=== PATIENT | female | born 1955 | race Caucasian/White ===

== ENCOUNTER 2018-05-22 09:10 | Emergency (ER) | payer OTHER ==
[2018-05-22] MEDS ORDERED: ONDANSETRON HCL IV 4 MG/2 ML VIAL IVP ONE (09:19)
[2018-05-22] MEDS ORDERED: ACETAMINOPHEN 1,000 MG/100 ML BTL IVPB ONE (09:19)
[2018-05-22] MEDS ORDERED: 0.9 % SODIUM CHLORIDE 1000ML 1,000 ML IV ONE (09:19)
--- NOTE | 2018-05-22 09:23 | Emergency Department Record ---
History of Present Illness - General Chief Complaint: Back Pain/Injury Stated Complaint: R BACK AND FRONT PAIN Time Seen by Provider: 05/22/18 09:18 Source: Patient, Family Mode of Arrival: Ambulatory Limitations: No limitations - History of Present Illness Initial Comments: 62 yo female presents with right flank pain and discomfort with urination. The onset was yesterday. She has urinary frequency with small amounts. No fever but she felt chilled. She denies any blood in the urine or stools. She took Azo without improvement. She has had a prior remote history of renal stones. No diarrhea. No rash. The pain started in the back and radiates to the right lower abdomen. She reports she has had an appendectomy and hysterectomy. MD Complaint: Back pain -: Hour(s) Place: Home Radiation: Abdomen Severity: Severe Quality: Aching, Sharp Consistency: Constant Improves With: None Worsens With: None Context: Other Associated Symptoms: Abdominal pain, Difficulty urinating, Loss of appetite, Nausea/vomiting - Related Data Home Medications Medication Instructions Recorded Confirmed Last Taken Hydrochlorothiazide [Hctz] 25 mg PO DAILY 05/22/18 05/22/18 Unknown Meloxicam [Mobic] 15 mg PO DAILY 05/22/18 05/22/18 Unknown Metformin HCl 1,000 mg PO BID 05/22/18 05/22/18 Unknown Semaglutide [Ozempic] 1 mg SQ WEEKLY 05/22/18 05/22/18 Unknown Valsartan/Hydrochlorothiazide 1 each PO DAILY 05/22/18 05/22/18 Unknown [Diovan Hct 320-12.5 mg Tab] Venlafaxine HCl [Venlafaxine HCl 150 mg PO DAILY 05/22/18 05/22/18 Unknown ER] Previous Rx's Medication Instructions Recorded Cephalexin [Keflex] 500 mg PO TID #21 cap 05/22/18 Hydrocodone/APAP 5/325Mg [[place] 1 each PO Q6H #10 tab 05/22/18 5Mg/325Mg] Ondansetron [Zofran Odt] 4 mg PO Q8H #20 tab.rapdis 05/22/18 Allergies Allergy/AdvReac Type Severity Reaction Status Date / Time Penicillins Allergy HIVES Verified 05/22/18 09:22 Review of Systems Constitutional: Reports: Chills. Denies: Fever, Malaise, Weakness Eyes: Denies: Eye discharge, Eye pain, Vision change ENT: Denies: Congestion, Throat pain Respiratory: Denies: Cough, Dyspnea, Hemoptysis Cardiovascular: Denies: Chest pain, Palpitations, Syncope Endocrine: Denies: Fatigue, Polydipsia, Polyuria Gastrointestinal: Reports: Abdominal pain, Nausea, Vomiting. Denies: Constipation, Diarrhea, Hematemesis, Hematochezia Genitourinary: Reports: Dysuria, Frequency, Urgency. Denies: Hematuria Musculoskeletal: Reports: Back pain. Denies: Arthralgia, Neck pain Skin: Denies: Bruising, Change in color, Rash Neurological: Denies: Headache, Numbness, Tremors, Weakness Psychiatric: Denies: Anxiety Hematological/Lymphatic: Denies: Blood Clots, Easy bleeding, Easy bruising, Swollen glands Physical Exam - General General Appearance: Alert, Oriented x3, Cooperative, No acute distress Limitations: No limitations - Head Head exam: Atraumatic, Normal inspection - Eye Eye exam: Normal appearance, PERRL. negative: Conjunctival injection, Scleral icterus - ENT ENT exam: Normal exam, Mucous membranes moist Ear exam: Normal external inspection Nasal Exam: Normal inspection Mouth exam: Normal external inspection - Neck Neck exam: Normal inspection. negative: Tenderness - Respiratory Respiratory exam: Normal lung sounds bilaterally. negative: Respiratory distress, Rhonchi, Stridor, Wheezes - Cardiovascular Cardiovascular Exam: Regular rate, Normal rhythm, Normal heart sounds - GI/Abdominal GI/Abdominal exam: Soft, Tenderness (tender right flank and RLQ, soft, non distended). negative: Distended, Guarding - Rectal Rectal exam: Deferred - exam: Deferred - Extremities Extremities exam: Normal inspection. negative: Tenderness - Back Back exam: Reports: CVA tenderness (R), Tenderness. Denies: CVA tenderness (L) - Neurological Neurological exam: Alert, Normal gait, Oriented X3 - Psychiatric Psychiatric exam: Normal affect, Normal mood. negative: Agitated, Anxious - Skin Skin exam: Dry, Intact, Normal color, Warm Course - Reevaluation(s) Reevaluation #1: 05/22/18 09:55 The CBC was reviewed. No acute changes. 05/22/18 10:04 The CMP was reviewed. Normal renal, hepatic, and pancreatic labs. 05/22/18 10:24 I discussed the UA with the labview programmer. She reviewed the urine under the microscope. She does not see bacteria and the WBC count is low. The Azo is interfering with the results. She is LE - and N +. A false positve N can occur with red or orange discoloration of the urine from the medication. A culture will be sent. The patient had moderate blood with 36-50 RBC's. 05/22/18 10:26 05/22/18 10:[address] scan was consistent with right distal 3mm UVJ stone with mild hydro. The results were discussed with the patient. I explained the UA is not likely infected but a culture will be sent. I will provide analgesics I recommend antibiotics until the culture returns 05/22/18 11:31 The patient is much improved Her pain is well controlled We discussed DC, close follow up and reasons to return She will be provided a referral to the urology clinic as well We discussed very unlikely UTI but she will be on antibiotics until the culture returns Medical Decision Making - Lab Data Result diagrams: 05/22/18 09:25 05/22/18 09:25 Disposition Disposition: Discharge Clinical Impression: Renal colic on right side Disposition: Home, Self-Care Condition: (1) Good Instructions: Renal Colic (ED) Additional Instructions: Call your doctor for the next available follow up appointment Return to the ER for a recheck if worse, any new concerns or questions Take the prescriptions provided as directed Review this ER visit and the tests performed with your family doctor Your urine culture will be available in 2-3 days Return if you have fever, vomiting, or uncontrolled pain. Prescriptions: Cephalexin [Keflex] 500 mg PO TID #21 cap Hydrocodone/APAP 5/325Mg [[place] 5Mg/325Mg] 1 each PO Q6H #10 tab Ondansetron [Zofran Odt] 4 mg PO Q8H #20 tab.rapdis Referrals: BRODIE HARTMANN M.D. [MEDICAL DOCTOR] - [facility] [Provider Group] Forms: Patient Portal Access Time of Disposition: 11:34 Quality - Quality Measures Quality Measures: N/A - Blood Pressure Screening Does Patient Have Any of the Following: Active Dx of HTN Blood Pressure Classification: Pre-Hypertensive BP Reading Systolic Measurement: 125 Diastolic Measurement: 85 Screening for High Blood Pressure: Patient Exclusion, Hx of HTN [G9744]
[2018-05-22 09:38] LABS: HEMATOCRIT 43.2 % (35.0-47.0); HEMOGLOBIN 14.5 gm/dl (11.6-16.0); MEAN CELL VOLUME 86.9 fl (81-97); MEAN CORPUSCULAR HEMOGLOBIN 29.2 pg (27-33); MEAN CORPUSCULAR HGB CONC 33.6 g/dl (32-36); MEAN PLATELET VOLUME 11.1 fl (7.4-10.4); PLATELET COUNT 304 K/uL (130-400); RED BLOOD COUNT 4.97 M/uL (3.80-5.40); RED CELL DISTRIBUTION WIDTH 12.9 % (11.5-14.5); WHITE BLOOD COUNT W/O DIFF 11.4 K/uL (4.2-12.2)
[2018-05-22 09:55] LABS: BLOOD UREA NITROGEN 14 mg/dL (8-23); CREATININE 0.6 mg/dL (0.5-0.9); EST GLOMERULAR FILTRATION RATE > 60 mL/min; TOTAL PROTEIN 8.1 g/dL (6.6-8.7)
[2018-05-22 09:56] LABS: LIPASE 39 U/L (13-60)
[2018-05-22 09:57] LABS: GLUCOSE,RANDOM 170 mg/dL (74-109)
[2018-05-22 10:00] LABS: ALB/GLOB RATIO 1.3 (1.1-1.8); ALBUMIN 4.5 g/dL (4.0-5.0); ALKALINE PHOSPHATASE 70 U/L (45-87); ALT/SGPT 24 U/L (<33); AST/SGOT 20 U/L (10.0-35.0)
[2018-05-22 10:02] LABS: URINE APPEARANCE CLEAR; URINE BILIRUBIN NEGATIVE (NEGATIVE); URINE BLOOD MODERATE (NEGATIVE); URINE COLOR ORANGE; URINE GLUCOSE (UA) NEGATIVE (NEGATIVE); URINE KETONE NEGATIVE (NEGATIVE); URINE LEUKOCYTE ESTERASE NEGATIVE (NEGATIVE); URINE NITRITE POSITIVE (NEGATIVE); URINE PROTEIN TRACE (NEGATIVE)
[2018-05-22] MEDS ORDERED: KETOROLAC 30 MG/ML VIAL IVP ONE ×2 (10:02→10:45)
[2018-05-22 10:13] LABS: URINE RBC 36 - 50 (NONE SEEN); URINE SQUAMOUS EPITHELIAL CELL 0 - 2 /hpf
[2018-05-22] MEDS ORDERED: MORPHINE SULFATE 10 MG/ML VIAL IVP ONE (10:45)
--- NOTE | 2018-05-24 08:18 | CT SCAN REPORT ---
EXAM: NONCONTRAST CT OF THE ABDOMEN AND PELVIS HISTORY: RIGHT FLANK PAIN, DYSURIA. TECHNIQUE: Noncontrast CT of the abdomen and pelvis was obtained. Comparison: Abdominal ultrasound 10/01/10. FINDINGS: The lung bases are clear. A small low attenuation lesion in the periphery of the lateral segment of the left hepatic lobe, likely corresponding to a previously seen simple cyst. The second previously identified hepatic cyst is not as well seen on today's examination, otherwise unremarkable appearance of the liver. Unremarkable noncontrast appearance of the gallbladder, spleen, adrenal glands, and pancreas. Moderate hydronephrosis. Punctate bilateral 1-2 mm intrarenal calculi. No left hydronephrosis. At the right ureteral vesicular junction there is a 3 mm calculus. Descending and sigmoid colon diverticulosis without evidence of acute diverticulitis. No focal colonic thickening or inflammatory changes. Normal appendix. The stomach and small bowel are nondilated. No free air or free fluid. Otherwise unremarkable appearance of the urinary bladder. Nonvisualization of the uterus compatible with history of hysterectomy. IMPRESSION: 1. THERE IS A 3 MM CALCULUS AT THE RIGHT URETERAL VESICULAR JUNCTION RESULTING IN MILD RIGHT HYDROURETERONEPHROSIS. 2. ADDITIONAL BILATERAL PUNCTATE NONOBSTRUCTING INTRARENAL CALCULI ARE PRESENT. JOB NUMBER: [id number] [facility]
== END 2018-05-22 11:47 | disposition home or self-care (01) ==
LOC: ER 09:10
DX: N13.2 Hydronephrosis with renal and ureteral calculous obstruction (principal); R10.31 Right lower quadrant pain; R30.0 Dysuria; R11.2 Nausea with vomiting, unspecified; E11.9 Type 2 diabetes mellitus without complications; I10 Essential (primary) hypertension; Z79.84 Long term (current) use of oral hypoglycemic drugs; Z87.442 Personal history of urinary calculi
CPT/HCPCS: 99284 ×2; 96376; 96365; 96375; 96361; 83690; 80053; 81001; 85027; 74176; J1885; J2405; J2270; J7030

== ENCOUNTER 2018-11-08 07:39 | Day surgery (SDC) | payer OTHER ==
[2018-11-08] MEDS ORDERED: LIDOCAINE 2% MDV (20MG/ML) 20ML VIAL IV ONE (07:40)
[2018-11-08] MEDS ORDERED: PROPOFOL 10 MG/ML VIAL IV ONE (07:40)
--- NOTE | 2018-11-09 08:30 | Operative Note ---
OPERATION: ESOPHAGOGASTRODUODENOSCOPY with multiple biopsies and Scott bougie dilation. INDICATION: Dysphagia. The patient reports history of dysphagia pointing to the upper chest and neck. She has both oropharyngeal dysphagia and esophageal dysphagia, she claims, after discussion. She states that this has been progressive over time. She denies any nasal reflux. She admits to problems only with solid foods. ANESTHESIA: Intravenous sedation was administered by the department of anesthesiology and included Diprivan titrated to effect. PROCEDURE: Following informed consent from this alert individual, including a discussion of the risks and benefits of the procedure and an opportunity for the patient to ask questions, the patient was in the left lateral decubitus position. The Olympus [id number] video endoscope was inserted into the posterior pharynx and esophagus without resistance. The posterior pharynx appeared to be normal. Vocal cords and arytenoid processes were normal. The esophagus was somewhat tortuous but the mucosa appeared to be normal with a normal luminal diameter. There were no ulcerations or erosions noted. The squamocolumnar junction was smooth, well defined, and marked a small 2 cm hiatal hernia. The hernia sac itself was free from mucosal changes. The subdiaphragmatic stomach was entered. The gastric fundus and pars media had a normal appearance with normal folds and distensibility. The antrum evaluated, however, demonstrated multiple small 6-7 mm ulcerations circumferentially. The pylorus was symmetrical and patent. The duodenal bulb, sweep, and descending duodenum were examined in a serial fashion and found to be normal. The endoscope was then drawn back into the body of the stomach. Retroflexion accomplished following air insufflation revealed a normal fundus and cardia. The endoscope was then straightened. Multiple biopsies were taken from the stomach to assess for Helicobacter pylori and check histology. A second set of biopsies was taken from throughout the esophagus to rule out the remote possibility of eosinophilic esophagitis. Again the mucosa appeared to be normal. The endoscope was then withdrawn. Dilation was accomplished then with a 48 Scott bougie with minimal resistance. The patient tolerated the procedure well and was returned to the recovery area in stable condition. IMPRESSION: 1. Multiple 6-7 mm gastric antral ulcerations perhaps related to anti- inflammatory medications. Biopsies from the stomach were taken. 2. Small hiatal hernia. 3. Esophageal biopsies taken for history of dysphagia although the mucosa appeared to be normal. 4. Successful dilatation with minimal resistance with a 48 Scott dilator. RECOMMENDATION: The patient will be started on Protonix 40 mg daily. She will be arranged to have recheck endoscopy in 8-10 weeks to assess healing and progress. Followup will also be with Dr. Trinh. As always, thank you for allowing me to participate in the care of your patient. AWILDA
== END 2018-11-08 10:10 | disposition home or self-care (01) ==
LOC: HOP 07:39
PROVIDERS: ATTEND Internal Medicine Gastroenterology
DX: R13.12 Dysphagia, oropharyngeal phase (principal); R13.19 Other dysphagia; K22.2 Esophageal obstruction; K44.9 Diaphragmatic hernia without obstruction or gangrene; K25.9 Gastric ulcer, unspecified as acute or chronic, without hemorrhage or perforation; K31.9 Disease of stomach and duodenum, unspecified; K21.9 Gastro-esophageal reflux disease without esophagitis; E11.9 Type 2 diabetes mellitus without complications; E78.00 Pure hypercholesterolemia, unspecified; I10 Essential (primary) hypertension; M10.9 Gout, unspecified; M19.90 Unspecified osteoarthritis, unspecified site

== ENCOUNTER 2019-01-31 09:54 | Day surgery (SDC) | payer OTHER ==
[2019-01-31] MEDS ORDERED: PROPOFOL 10 MG/ML VIAL IV ONE (09:55)
[2019-01-31] MEDS ORDERED: LIDOCAINE 2% MDV (20MG/ML) 20ML VIAL IV ONE (09:55)
--- NOTE | 2019-02-01 07:50 | Operative Note ---
OPERATION: ESOPHAGOGASTRODUODENOSCOPY. INDICATION: Recent endoscopy demonstrating multiple antral gastric ulcerations. The patient returns at this time to assess healing. She also continues to experience dysphagia pointing to the upper esophagus area. She actually complains of symptoms most compatible with oropharyngeal dysphagia rather than esophageal dysphagia. ANESTHESIA: Intravenous sedation was administered by the department of anesthesiology and included Diprivan titrated to effect. PROCEDURE: Following informed consent from this alert individual, including a discussion of the risks and benefits of the procedure and an opportunity for the patient to ask questions, the patient was in the left lateral decubitus position. The Olympus [id number] video endoscope was inserted into the esophagus without resistance. The proximal esophagus had a normal appearance with normal folds and distensibility. The mid and distal esophagus likewise was free from changes. The vocal cords on initial inspection were also endoscopically unremarkable. The stomach was entered. The gastric fundus and pars media had a normal appearance with normal folds and distensibility. The antrum evaluated circumferentially demonstrated some erythematous focal areas with superficial erosions but essentially healed gastric ulcers that had been noticed previously. The pylorus was patent. The duodenal bulb, sweep and descending duodenum were examined in a serial fashion and found to be normal. The endoscope was then withdrawn back into the body of the stomach where retroflexion accomplished following air insufflation failed to demonstrate changes. The endoscope was then straightened and withdrawn back through a normal esophagus and removed from the patient. She tolerated the procedure well and was returned to the recovery area in stable condition. IMPRESSION: Healed gastric antral ulcerations with a few small erosions remaining and erythema only. No ulcerations or other abnormalities detected. RECOMMENDATION: The patient will continue on acid blockade therapy. We will arrange for a video swallow study to assess her dysphagia. As always, thank you for allowing me to participate in the care of your patient. AWILDA
== END 2019-01-31 12:40 | disposition home or self-care (01) ==
LOC: HOP 09:54
PROVIDERS: ATTEND Internal Medicine Gastroenterology
DX: Z09 Encounter for follow-up examination after completed treatment for conditions other than malignant neoplasm (principal); K25.9 Gastric ulcer, unspecified as acute or chronic, without hemorrhage or perforation; R13.12 Dysphagia, oropharyngeal phase; K44.9 Diaphragmatic hernia without obstruction or gangrene; E11.9 Type 2 diabetes mellitus without complications; E78.00 Pure hypercholesterolemia, unspecified; K21.9 Gastro-esophageal reflux disease without esophagitis; M19.90 Unspecified osteoarthritis, unspecified site

== ENCOUNTER 2019-02-06 14:50 | Emergency (ER) | payer OTHER ==
[2019-02-06] MEDS ORDERED: ONDANSETRON HCL IV 4 MG/2 ML VIAL IV ONE (15:09)
[2019-02-06] MEDS ORDERED: 0.9 % SODIUM CHLORIDE 1,000 ML BAG IV ONE (15:09)
[2019-02-06] MEDS ORDERED: ACETAMINOPHEN 1,000 MG/100 ML BTL IVPB ONE (15:10)
--- NOTE | 2019-02-06 15:13 | Emergency Department Record ---
History of Present Illness - General Chief Complaint: Dizziness Stated Complaint: HIGH SUGAR,DIZZINESS,VOMITING Time Seen by Provider: 02/06/19 15:03 Source: Patient Mode of Arrival: Ambulatory Limitations: No limitations - History of Present Illness Initial Comments: The patient is here due to a 3 week hx of weakness, dizziness and feeling intermittently off balance. She also feels like she has had short term memory loss. Today the symptoms are worse and she has had nausea and vomiting x 3. At home her blood sugar was running almost 300 per her home monitor. The patient denies any CP, SOB, MARKUS, fever or back pain. The patient did drive here without difficulty. MD Complaint: Dizziness, Lightheadedness Onset/Timin -: Week(s) Timing: Gradual onset Description: Difficulty walking, Lightheadedness, Nausea, Near-syncope, Off- balance, "Room spinning", Sense of movement History of Same: No History of Trauma: No Improves With: Nothing Worsens With: Movement, Position - [place] Coma Scale Eye Response: (4) Open spontaneously Motor Response: (6) Obeys commands Verbal Response: (5) Oriented [place] Total: 15 - Related Data Home Medications Medication Instructions Recorded Confirmed Last Taken Allopurinol 100 mg PO DAILY 02/06/19 02/06/19 Unknown Atorvastatin Calcium 40 mg PO DAILY 02/06/19 02/06/19 Unknown Pantoprazole Sodium [Protonix] 40 mg PO DAILY 02/06/19 02/06/19 Unknown Valsartan [Diovan] 320 mg PO DAILY 02/06/19 02/06/19 Unknown Previous Rx's Medication Instructions Recorded Hydrocodone/APAP 5/325Mg [[place] 1 each PO Q6H #10 tab 05/22/18 5Mg/325Mg] Meclizine HCl [Antivert] 25 mg PO Q8H #21 tablet 02/06/19 Potassium Chloride 20 meq PO DAILY #120 liquid 02/06/19 Allergies Allergy/AdvReac Type Severity Reaction Status Date / Time Penicillins Allergy HIVES Verified 02/06/19 15:03 Travel Screening - Travel/Exposure Within Last 30 Days Have you traveled within the last 30 days?: No Review of Systems Constitutional: Denies: Chills, Fever Eyes: Denies: Eye discharge ENT: Denies: Congestion Respiratory: Denies: Cough Cardiovascular: Denies: Arrhythmia Endocrine: Reports: Fatigue Gastrointestinal: Reports: Nausea, Vomiting. Denies: Abdominal pain Genitourinary: Denies: Dysuria Musculoskeletal: Denies: Arthralgia Past Medical History - SOCIAL HISTORY Smoking Status: Never smoker Alcohol Use: None Drug Use: None - RESPIRATORY Hx Respiratory Disorders: Yes Hx Pneumonia: Yes - CARDIOVASCULAR Hx Cardio Disorders: Yes Hx Hypertension: Yes Comment:: high cholesterol - NEURO Hx Neuro Disorders: Yes Hx of Migraines: Yes - GI Hx GI Disorders: Yes Hx Hiatal Hernia: Yes Hx Irritable Bowel: Yes Hx Ulcer: Yes (gastric) Hx of Polyps: Yes - Hx Genitourinary Disorders: Yes Hx Kidney Stones: Yes - ENDOCRINE Hx Endocrine Disorders: Yes Hx Diabetes: Yes (type 2) - MUSCULOSKELETAL Hx Musculoskeletal Disorders: Yes Hx Arthritis: Yes Hx Gout: Yes - PSYCH Hx Psych Problems: Yes Hx Anxiety: Yes Hx Depression: Yes - HEMATOLOGY/ONCOLOGY Hx Hematology/Oncology Disorders: Yes Hx Anemia: Yes Family Medical History Any Significant Family History?: No Physical Exam - General General Appearance: Alert, Oriented x3, Cooperative, No acute distress - Head Head exam: Atraumatic, Normocephalic, Normal inspection - Eye Eye exam: Normal appearance, PERRL, EOMI - ENT Throat exam: Normal inspection. negative: Tonsillar erythema, Tonsillar exudate - Neck Neck exam: Normal inspection, Full ROM. negative: Tenderness - Respiratory Respiratory exam: Normal lung sounds bilaterally. negative: Respiratory distress - Cardiovascular Cardiovascular Exam: Regular rate, Normal rhythm, Normal heart sounds - GI/Abdominal GI/Abdominal exam: Soft, Normal bowel sounds. negative: Tenderness - Extremities Extremities exam: Normal inspection, Full ROM, Normal capillary refill. negative: Tenderness - Neurological Neurological exam: Alert, Normal gait, Oriented X3 (The patient is answering all questions appropriately with no confusion.), Other (Neg Drift and [place].). negative: Abnormal gait, Altered, Motor sensory deficit - Psychiatric Psychiatric exam: Anxious Course Vital Signs 02/06/19 14:59 Temperature 97.7 F Pulse Rate 78 Respiratory 20 Rate Blood Pressure 145/89 Pulse Ox 99 - Reevaluation(s) Reevaluation #1: The patient is doing a lot better at this time. Her dizziness and LONG have completely resolved. She is up walking normally with normal balance and is feeling MUCH better. She does have an appointment with her PCP in 2 days. 02/06/19 16:59 Medical Decision Making - Data Complexity MDM Data: Labs Ordered and/or Reviewed, X-Ray Ordered and/or Reviewed - Lab Data Result diagrams: 02/06/19 15:00 02/06/19 15:00 - Radiology Data Radiology results: Report reviewed (Head CT: Neg per Rad.) Disposition Disposition: Discharge Clinical Impression: Dizziness Disposition: Home, Self-Care Condition: (2) Stable Instructions: Dizziness (ED) Additional Instructions: Please rest and drink plenty of fluids. Use the Meclizine as directed and please also take the Potassium for a week. Please see your family doctor in 2 days as planned. Return to the ER for any worsening or new issues. Prescriptions: Meclizine HCl [Antivert] 25 mg PO Q8H #21 tablet Potassium Chloride 20 meq PO DAILY #120 liquid Forms: Patient Portal Access Time of Disposition: 17:03 Quality - Quality Measures Quality Measures: N/A - Blood Pressure Screening View Details: Yes Does Patient Have Any of the Following: No Blood Pressure Classification: Pre-Hypertensive BP Reading Systolic Measurement: 145 Diastolic Measurement: 89 Screening for High Blood Pressure: < Pre-Hypertensive BP, F/U Documented > [G8950] Pre-Hypertensive Follow-up Interventions: Referral to alternative/primary care provider.
[2019-02-06 15:22] LABS: BASO % 0.2 % (0-6); GRAN % 78.4 % (47-80); HEMATOCRIT 43.6 % (35.0-47.0); HEMOGLOBIN 14.3 gm/dl (11.6-16.0); LYMPH % 11.7 % (16-45); MEAN CELL VOLUME 89.9 fl (81-97); MEAN CORPUSCULAR HEMOGLOBIN 29.5 pg (27-33); MEAN CORPUSCULAR HGB CONC 32.8 g/dl (32-36); MEAN PLATELET VOLUME 10.8 fl (7.4-10.4); MONO % 8.7 % (0-9); PLATELET COUNT 331 K/uL (130-400); RED BLOOD COUNT 4.85 M/uL (3.80-5.40); RED CELL DISTRIBUTION WIDTH 12.5 % (11.5-14.5); WHITE BLOOD COUNT W/O DIFF 10.1 K/uL (4.2-12.2)
[2019-02-06 15:36] LABS: BLOOD UREA NITROGEN 17 mg/dL (8-23)
[2019-02-06 15:37] LABS: CREATININE 0.5 mg/dL (0.5-0.9); EST GLOMERULAR FILTRATION RATE > 60 mL/min; LIPASE 31 U/L (13-60)
[2019-02-06 15:39] LABS: GLUCOSE,RANDOM 140 mg/dL (74-109)
[2019-02-06 15:42] LABS: ALBUMIN 4.6 g/dL (4.0-5.0); ALKALINE PHOSPHATASE 69 U/L (35-104); ALT/SGPT 21 U/L (<33); AST/SGOT 23 U/L (10.0-35.0); BILIRUBIN,DIRECT < 0.2 mg/dL (0-0.3)
--- NOTE | 2019-02-06 15:50 | CT SCAN REPORT ---
EXAMINATION: CT Head without Contrast EXAM DATE: 02/06/2019 3:42 PM TECHNIQUE: Routine axial CT was acquired from skull base through vertex without contrast. Sagittal an d coronal isotropic reformatted images are reviewed. INDICATION: LONG with vomiting and feeling off balance.. COMPARISON: None. ENCOUNTER: Not applicable HAND DOMINANCE: Unknown. FINDINGS: No intracranial fluid collection or hemorrhage. Brain attenuation and configuration are within normal limits. Age-appropriate CSF spaces. No significant extraneous finding. IMPRESSION: No acute infarct, mass or hemorrhage Dictated by: Bismark Pascual MD on 02/06/2019 3:47 PM. .
[2019-02-06] MEDS ORDERED: POTASSIUM CHLORIDE 20 MEQ TABLET PO ONE (15:58)
[2019-02-06] MEDS ORDERED: POTASSIUM CHLORIDE 20 MEQ/15ML CUP PO ONE (16:23)
== END 2019-02-06 17:14 | disposition home or self-care (01) ==
LOC: ER 14:50
DX: R42 Dizziness and giddiness (principal); R51 Headache; R53.1 Weakness; R11.2 Nausea with vomiting, unspecified; E11.9 Type 2 diabetes mellitus without complications; I10 Essential (primary) hypertension; R26.89 Other abnormalities of gait and mobility
CPT/HCPCS: 99284 ×2; 96365; 96375; 96361; 83690; 85025; 80076; 80048; 36416; 82948; 70450; J2405; J7030